=== PATIENT | female | born 1965 | race Caucasian/White ===

== ENCOUNTER → 2024-10-17 | Outpatient (CLI) | payer SELFPAY ==
[2024-10-17 16:43] LABS: Hematocrit 43.5 % (37-47); Hemoglobin 14.2 g/dL (12.0-15.0); Mean Corp Hgb Conc 32.6 g/dL (32-36); Mean Corpuscular Volume 92.4 fL (81-99); Mean Platelet Vol. 9.4 fl (6.2-12.0); Platelet Count 295 K/mm3 (150-450); RBC Distribution Width CV 11.8 % (11.6-14.6); RBC Distribution Width SD 40.0 fl (35.1-43.9); Red Blood Count 4.71 M/mm3 (4.2-5.4); White Blood Count 6.6 K/mm3 (4.4-11.0)
[2024-10-17 19:26] LABS: AST(SGOT) 22 U/L (<=31); Alanine Aminotransfer ALT/SGPT 12 U/L (<=34); Albumin, Serum 4.6 g/dL (3.5-5.0); Alkaline Phosphatase 103 U/L (35-104); Anion Gap 13 (5-15); BUN 13 mg/dL (4-19); BUN/Creat Ratio 15.5 RATIO (10-20); Calcium,Total 9.8 mg/dL (7.6-11.0); Carbon Dioxide 25.8 mmol/L (21.0-32.0); Chloride 104 mmol/L (98-108); Free T3 2.5 pg/mL (2.18-3.98); Globulin 3.3 g/dL (2.2-4.2); Glucose 95 mg/dL (70-99); Potassium 4.2 mmol/L (3.3-5.1)
== END | disposition home or self-care (01) ==
LOC: BIMLAB 16:17
PROVIDERS: PCP Nurse Practitioner Family; Visit Provider Nurse Practitioner Family
DX: E06.3 Autoimmune thyroiditis (principal); R51.9 Headache, unspecified; R10.9 Unspecified abdominal pain; N39.0 Urinary tract infection, site not specified; G89.29 Other chronic pain
CPT/HCPCS: 36415; 80053; 84439; 84443; 84481; 85027

== ENCOUNTER 2024-11-19 07:21 | Day surgery (SDC) | payer SELFPAY ==
[2024-11-19] VITALS (8 sets, daily range): BP systolic 102–133; BP diastolic 52–72; PULSE 55–63; RESP 12–16; TEMP 36.1–36.5; O2SAT 100; BMI 21.7
--- OUTSIDE RECORDS SUMMARY | 2024-11-19 07:25 | XMS RPT_ITS | CCD ---
Author Organization [facility] Care Team Providers Care Sap Bw Developer Name Role Phone Anaya, Son N Unavailable Unavailable Anaya, Son N Unavailable Unavailable Frida GUTIERREZ, Dr. Gonzales Primary Care Provider Dr. Janet Galicia MD Referring Provider Yas Becerril Attending Provider Ungerer BRIDGE INSTRUCTOR-C, Shima Attending Provider Ungerer BRIDGE INSTRUCTOR-C, Shima Primary Care Provider Ungerer BRIDGE INSTRUCTOR-C, Shima Referring Provider Lian GUTIERREZ, Dr. Jacob Madden Attending Provider Ungerer, Shima Primary Care Unavailable Jacob Beal Attending Unavailable Ungerer, Shima Referring Unavailable Ungerer, Shima Primary Care Unavailable Ungerer, Shima Attending Unavailable Ungerer, Shima Primary Care Unavailable Jacob Beal Attending Unavailable Ungerer, Shima Referring Unavailable Janet Galicia Referring Unavailable Janet Galicia Primary Care Unavailable Ungerer, Shima Attending Unavailable Janet Galicia Referring Unavailable Janet Galicia Primary Care Unavailable Yas Becerril Attending Unavail able Medications Current Medications Medication Drug Class(es) Dates Sig (Normalized) Sig (Original) polyethylene glycol 3350 608182 mg / potassium chloride 2970 mg / sodium bicarbonate 6740 mg / sodium chloride 5860 mg / sodium sulfate 09893 mg powder for oral solution (4 sources) Osmotic Laxative Start: 10-23-2024 Peg 3350-Electrolytes (Golytely) 236-22.74-6.74 -5.86 gram recon soln Active 240 mL PO Q10M 4000 0 October 23, 2024 12:00am until fecal effluent is clear Start: 10-23-2024 take 4000 mL by mouth once Peg 3350-Electrolytes 236-22.74-6.74 -5.86 gram recon soln Active 4000 mL PO ONCE 4000 0 October 23, 2024 12:00am until fecal effluent is clear; do not exceed a total volume of 4000 mL Problems Active Problems Problem Classification Problem Date Documented Da te Episodic/Chronic Abdominal pain (20 sources) Pain in pelvis; Translations: [Abdominal discomfort] Onset: 10-23-2024 Episodic Genitourinary symptoms and ill-defined conditions (1 source) Dysuria; Translations: [Dysuria] Onset: 10-14-2024 Episodic Headache; including migraine (6 sources) Chronic headache disorder; Translations: [Chronic headache disorder] 10-17-2024 Episodic Headache; including migraine (1 source) Headache; including migraine; Translations: [Headache, unspecified] Onset: 10-17-2024 Other ear and sense organ disorders (4 sources) Hearing disorder; Translations: [Unspecified hearing loss, unspecified ear] 10-17-2024 Chronic Other gastrointestinal disorders (4 sources) Abdominal bloating; Translations: [Abdominal distension (gaseous)] 10-23-2024 Episodic Other gastrointestinal disorders (4 sources) Constipation; Translations: [Constipation, unspecified] 10-23-2024 Episodic Other gastrointestinal disorders (1 source) Abdominal distension (gaseous); Translations: [Abdominal distension (gaseous)] Onset: 10-23-2024 Episodic Other gastrointestinal disorders (1 source) Constipation, unspecified; Translations: [Constipation, unspecified] Onset: 10-23-2024 Episodic Other nervous system disorders (1 source) Other chronic pain; Translations: [Other chronic pain] Onset: 10-17-2024 Chronic Other screening for suspected conditions (not mental disorders or infectious disease) (7 sources) Patient encounter status; Translations: [Encounter for screening for malignant neoplasm of colon] Onset: 10-23-2024 10-17-2024 Episodic Thyroid disorders (7 sources) Alejandra thyroiditis; Translations: [Autoimmune thyroiditis] Onset: 11-06-2024 10-17-2024 Chronic Thyroid disorders (8 sources) Disorder of thyroid gland; Translations: [Disorder of thyroid, unspecified] Onset: 10-17-2024 10-14-2024 Episodic Unclassified (1 source) Unknown / UNK(Unknown) Onset: 01-18-2017 Unclassified (4 sources) R10.2 - Pelvic and perineal pain,R10.9 - Unspecified abdominal pain Unclassified (2 sources) Encounter for screening for malignant neoplasm of colon Unclassified (2 sources) R10.9 - Unspecified abdominal pain,Z12.11 - Encounter for screening for malignant neoplasm of colon Urinary tract infections (7 sources) Recurrent urinary tract infection; Translations: [Urinary tract infection, site not specified] Onset: 10-17-2024 10-17-2024 Episodic Past or Other Problems Problem Classification Problem Date Documented Da te Episodic/Chronic Unclassified (1 source) BREAST SCREENING,Z00.00 Onset: 01-18-2017 Results Test Name Value Interpretation Reference Range Facility Surgery Visit Reporton 10-23 Surgery Visit Report [facility] [address] [place] [address] OFFICE VISIT Date of Service: 10/23/24 MR#: [id number] Acct: [id number] Name: ISMAEL GARRETT Monica Rep #: [id number] : 1965 Provider: Dr. Jacob colon MD Age/Sex: 59/F Location: [facility] Status: Signed Intake Vital Signs 10/17/24 15:26 10/23/24 08:48 Height 5 ft 5 in 5 ft 5 in Weight: 137 lb 135 lb BMI 22.8 22.4 BP 124/68 H 135/79 H Blood Pressure Location Lt brachial Rt brachial Position Sitting Sitting Respiration 18 18 Pulse 64 Pulse Source Monitor Temp 98.2 F Temp Source Temporal Pulse Oximetry (%) 96 Oxygen Delivery Method room air Intake Visit Reasons: SELF PAY- colonoscopy- abd pain Chief Complaint: RLQ abd pain, bloating, constipation Winding Inspector Required: No Is patient in pain?: Yes (RLQ abd) Allergies No Known Allergies Allergy (Verified 10/23/24 08:50) Medications ???Medication ???Instructions ???Recorded ???Confirmed ???Type NK 10/14/24 10/23/24 History Have you fallen in the past year?: No PFSH Medical History (Updated 10/23/24 @ 08:48 by Chapis Reyes) Constipation Bloating Abdominal pain Stenosis of ureter Stomach ulcer Abdominal migraine Surgical History (Updated 10/23/24 @ 08:48 by Chapis Reyes) H/O hand surgery Family History Father Myocardial infarction, Onset Age: 50 Suicide CVA (cerebral vascular accident), Onset Age: 50 Sister Suicide Sister Schizophrenia Manic depressive disorder Son Thyroid disorder Mother Thyroid disorder Graves disease Social History (Updated 10/23/24 @ 08:48 by Chapis Reyes) adopted: No current occupational status: employed current occupational exposures/hazards: No Smoking Status: Former smoker alcohol intake: former substance use type: marijuana what type of physical activity do you participate in: walking frequency: daily duration: 45-60 minutes/day seatbelt use: always do you feel safe at home: Yes HPI HPI HPI: The patient is a 59-year-old female who is being seen today for issues of chronic constipation as well as right lower quadrant pain. She states that this has been an ongoing problem for her off and on for several decades however in the last few years this has become much more symptomatic and problematic. She describes pain off and on in the right lower quadrant. She describes bloating. She states that she typically has a bowel movement once every 1 to 2 weeks. When asked about what she does to stimulate bowel movements, sounds as though she drinks more fluids and tries to eat a more high-fiber diet with more fruits and vegetables etc. she has not had a colonoscopy. As far as family history, her mother has history of polyps and diverticulitis. No family history for Crohn's disease, ulcerative colitis or colon cancers. She does not notice any regular blood in her stools but does state that several years ago she had a couple episodes of painless blood per rectum. She also describes somewhat of a burning sensation throughout her lower abdomen when the stools are passing. She presents today for evaluation and to discuss possible colonoscopy ROS General General: Yes weight change and fatigue; No appetite, colon cancer, breast cancer or weakness HEENT HEENT: No difficulty swallowing, eye injury, eye surgery, swollen glands or hoarseness Endo Endocrine: Yes thyroid disease; No diabetes mellitus, thyroid cancer, Hair loss, heat intolerance or cold intolerance Skin Skin: No rash or changing moles Breast Breast: No left breast lump, right breast lump, nipple discharge, breast pain, abnormal mammogram, abnormal US or breast enlargement Musc Musculoskeletal: Yes back problems; No arthritis, rheumatoid arthritis, gout or joint pain Cardio Cardiovascular: No murmur, pacemaker, heart disease, atrial fibrillation, high blood pressure, heart attack, heart stent, palpitations, shortness of breath with exertion or chest pain Psych Psychiatric: Yes depression; No anxiety or hearing voices Resp Respiratory: No shortness of breath, No sleep apnea, No cough, No COPD, No asthma, No emphysema and No wheezing Gastro Gastrointestinal: Yes abdominal pain, Yes nausea or vomiting, Yes diarrhea, Yes constipation, No blood in stool, No acid reflux, No hemorrhoids, No ulcers, No gallbladder problem and No black,tarry stools Jason Hematologic: No blood thinners, No blood disorders, No bleeding, No anemia and No blood clots Neuro Neurologic: No system reviewed and no additional complaints, except as documented, No as per HPI, No abnormal gait, No abnormal hearing, No abnormal movements, No abnormal speech, No behavioral changes, No burning sensations, No confusion, No convu (more content not included)... Normal [facility] Anion gap in Serum or Plasma Ordered By: Shima King on 10-17-2024 Anion gap [Moles/Vol] 13 mmol/L - [facility] BUN/creatinine ratioOrdered By: Shima King on 10-17-2024 Urea nitrogen/Creatinine [Mass ratio] 15.5 mg/mg 01-27 [facility] Bilirubin, totalOrdered By: Shima King on 10-17-2024 Bilirubin [Mass/Vol] 0.28 mg/dL 0.00-1.30 [facility] CBC-Complete Blood Cnt No Di ffon 10-17-2024 Erythrocyte distribution width (RBC) [Ratio] 11.8 % Normal 11.6-14.6 [facility] Comment on above: Performed By: #### L 501.9598, L506.0400, L100.0500, L500.4050, L501.65767 #### [facility] [place], [address] Hematocrit (Bld) [Volume fraction] 43.5 % Normal 37-47 [facility] Comment on above: Performed By: #### L 501.9520, L506.0400, L100.0500, L500.4050, L501.28920 #### [facility] [address] [place], [address] Hemoglobin (Bld) [Mass/Vol] 14.2 g/dL Normal 12.0-15.0 [facility] Comment on above: Performed By: #### L 501.9520, L506.0400, L100.0500, L500.4050, L501.32992 #### [facility] [address] [place], [address] MCH (RBC) [Entitic mass] 30.1 pg Normal 27.0-32.0 [facility] Comment on above: Performed By: #### L 501.9520, L506.0400, L100.0500, L500.4050, L501.60476 #### [facility] [address] [place], [address] MCHC (RBC) [Mass/Vol] 32.6 g/dL Normal 32-36 [facility] Comment on above: Performed By: #### L 501.9520, L506.0400, L100.0500, L500.4050, L501.25648 #### [facility] [address] [place], [address] MCV (RBC) [Entitic vol] 92.4 fL Normal 81-99 [facility] Comment on above: Performed By: #### L 501.9520, L506.0400, L100.0500, L500.4050, L501.39804 #### [facility] [address] [place], [address] Platelet mean volume (Bld) [Entitic vol] 9.4 fL Normal 6.2-12.0 [facility] Comment on above: Performed By: #### L 501.9520, L506.0400, L100.0500, L500.4050, L501.32709 #### [facility] [address] [place], [address] Platelets (Bld) [#/Vol] 295 10*3/uL Normal 150-450 [facility] Comment on above: Performed By: #### L 501.9520, L506.0400, L100.0500, L500.4050, L501.97839 #### [facility] [address] [place], [address] RBC (Bld) [#/Vol] 4.71 10*6/uL Normal 4.2-5.4 [facility] Comment on above: Performed By: #### L 501.9520, L506.0400, L100.0500, L500.4050, L501.72913 #### [facility] [address] [place], [address] RDW SD 40.0 fl Normal 35.1-43.9 [facility] Comment on above: Performed By: #### L 501.9520, L506.0400, L100.0500, L500.4050, L501.38707 #### [facility] [address] [place], [address] WBC (Bld) [#/Vol] 6.6 10*3/uL Normal 4.4-11.0 [facility] Comment on above: Performed By: #### L 501.9520, L506.0400, L100.0500, L500.4050, L501.03679 #### [facility] [address] [place], [address] Carbon dioxide, total [Moles /volume] in Central venous bloodOrdered By: Shima King on 10-17-2024 CO2 [Moles/Vol] 25.8 mmol/L 21.0-32.0 [facility] Chloride assayOrdered By: Corby King on 10-17-2024 Chloride [Moles/Vol] 104 mmol/L 98-108 [facility] Comprehensive Metabolic Prof ilon 10-17-2024 Albumin [Mass/Vol] 4.6 g/dL Normal 3.5-5.0 [facility] Comment on above: Performed By: #### L 501.9520, L506.0400, L100.0500, L500.4050, L501.54962 #### [facility] [address] [place], [address] Albumin/Globulin [Mass ratio] 1.4 {ratio} Normal 0.9-2.4 [facility] Comment on above: Performed By: #### L 501.9520, L506.0400, L100.0500, L500.4050, L501.12198 #### [facility] [address] [place], [address] ALK PHOS 103 U/L Normal 35-104 [facility] Comment on above: Performed By: #### L 501.9520, L506.0400, L100.0500, L500.4050, L501.75191 #### [facility] [address] [place], [address] ALT [Catalytic activity/Vol] 12 U/L Normal <=34 [facility] Comment on above: Performed By: #### L 501.9520, L506.0400, L100.0500, L500.4050, L501.77129 #### [facility] [address] [place], [address] AST [Catalytic activity/Vol] 22 U/L Normal <=31 [facility] Comment on above: Performed By: #### L 501.9520, L506.0400, L100.0500, L500.4050, L501.75510 #### [facility] [address] [place], [address] Bilirubin [Mass/Vol] 0.28 mg/dL Normal 0.00-1.30 [facility] Comment on above: Performed By: #### L 501.9520, L506.0400, L100.0500, L500.4050, L501.43166 #### [facility] [address] [place], [address] BUN/CRE 15.5 RATIO Normal 10-20 [facility] Comment on above: Performed By: #### L 501.9520, L506.0400, L100.0500, L500.4050, L501.21618 #### [facility] [address] [place], [address] Calcium [Mass/Vol] 9.8 mg/dL Normal 7.6-11.0 [facility] Comment on above: Performed By: #### L 501.9520, L506.0400, L100.0500, L500.4050, L501.48474 #### [facility] [address] [place], [address] Chloride [Moles/Vol] 104 mmol/L Normal 98-108 [facility] Comment on above: Performed By: #### L 501.9520, L506.0400, L100.0500, L500.4050, L501.10974 #### [facility] [address] [place], [address] CO2 [Moles/Vol] 25.8 mmol/L Normal 21.0-32.0 [facility] Comment on above: Performed By: #### L 501.9520, L506.0400, L100.0500, L500.4050, L501.01386 #### [facility] [address] [place], [address] Creatinine [Mass/Vol] 0.87 mg/dL Normal 0.70-1.20 [facility] Comment on above: Performed By: #### L 501.9520, L506.0400, L100.0500, L500.4050, L501.87466 #### [facility] [address] [place], [address] GAP 13 Normal 5-15 [facility] Comment on above: Performed By: #### L 501.9520, L506.0400, L100.0500, L500.4050, L501.20463 #### [facility] [address] [place], [address] GFR/1.73 sq M.predicted among non-blacks MDRD (S/P/Bld) [Vol rate/Area] 77 mL/min/{1.73_m2} Normal >60 [facility] Comment on above: Result Comment: mL/m in/1.73m2 CKD-EPI Creatinine Equation (2020) Performed By: #### L 501.9520, L506.0400, L100.0500, L500.4050, L501.23544 #### [facility] [address] [place], [address] Globulin (S) [Mass/Vol] 3.3 g/dL Normal 2.2-4.2 [facility] Comment on above: Performed By: #### L 501.9520, L506.0400, L100.0500, L500.4050, L501.39579 #### [facility] [address] [place], [address] Glucose [Mass/Vol] 95 mg/dL Normal 70-99 [facility] Comment on above: Performed By: #### L 501.9520, L506.0400, L100.0500, L500.4050, L501.91861 #### [facility] [address] [place], [address] Potassium [Moles/Vol] 4.2 mmol/L Normal 3.3-5.1 [facility] Comment on above: Performed By: #### L 501.9520, L506.0400, L100.0500, L500.4050, L501.50828 #### [facility] [address] [place], [address] Sodium [Moles/Vol] 143 mmol/L Normal 133-145 [facility] Comment on above: Performed By: #### L 501.9520, L506.0400, L100.0500, L500.4050, L501.63297 #### [facility] [address] [place], [address] T PROT 7.9 g/dL Normal 5.9-8.4 [facility] Comment on above: Performed By: #### L 501.9520, L506.0400, L100.0500, L500.4050, L501.79718 #### [facility] [address] [place], [address] Urea nitrogen [Mass/Vol] 13 mg/dL Normal 4-19 [facility] Comment on above: Performed By: #### L 501.9520, L506.0400, L100.0500, L500.4050, L501.81096 #### [facility] [address] [place], [address] Erythrocyte distribution wid th ratioOrdered By: Shima King on 10-17-2024 Erythrocyte distribution width (RBC) [Ratio] 11.8 % 11.6-14.6 [facility] Erythrocyte distribution wid th standard deviationOrdered By: Shima King on 10-17-2024 Erythrocyte distribution width (RBC) [Ratio] 40.0 fl 35.1-43.9 [facility] Free T3on 10-17-2024 Free T3 [Mass/Vol] 2.5 pg/mL Normal 2.18-3.98 [facility] Comment on above: Performed By: #### L 501.9520, L506.0400, L100.0500, L500.4050, L501.32959 #### [facility] [address] [place], [address] Free Q0Cidnojq By: Shima james on 10-17-2024 Free T3 [Mass/Vol] 2.5 pg/mL 2.18-3.98 [facility] Glomerular filtration rate ( GFR) estimation/1.73 sq m using serum, plasma, or whole bOrdered By: Shima King on 10-17-2024 GFR/1.73 sq M.predicted among non-blacks MDRD (S/P/Bld) [Vol rate/Area] 77 mL/min/{1.73_m2} >60 [facility] Comment on above: mL/min/1.73m2 CKD-EP I Creatinine Equation (2020) Hematocrit Auto (Bld) [Volum e fraction]Ordered By: Shima King on 10-17-2024 Hematocrit (Bld) [Volume fraction] 43.5 % 37-47 [facility] Hemoglobin measurementOrdere d By: Shima King on 10-17-2024 Hemoglobin (Bld) [Mass/Vol] 14.2 g/dL 12.0-15.0 [facility] Internal Medicine Office Vis iton 10-17-2024 Internal Medicine Office Visit [facility] [address] [place] [address] [place] [address] OFFICE VISIT Date of Service: 10/17/24 MR#: [id number] Acct: [id number] Name: ISMAEL GARRETT Monica Rep #: [id number] : 1965 Provider: CARMEN maki Age/Sex: 59/F [place] [facility] Status: Signed Intake Vital Signs 10/14/24 17:23 10/17/24 15:26 Height 5 ft 5 in 5 ft 5 in Weight: 138 lb 8 oz 137 lb BMI 23.0 22.8 BP 102/60 124/68 H Blood Pressure Location Lt brachial Position Sitting Sitting Respiration 16 18 Pulse 50 L 64 Pulse Source Monitor Temp 97.7 F L 98.2 F Temp Source Oral Temporal Pulse Oximetry (%) 98 96 Oxygen Delivery Method room air room air Intake Visit Reasons: ACUTE LOWER ABD PAIN-EST IN JAN Chief Complaint: ACUTE LOWER ABD PAIN- EST IN OCT Is patient in pain?: Yes (4 lower ABD) Allergies No Known Allergies Allergy (Verified 10/17/24 15:19) Medications ???Medication ???Instructions ???Recorded ???Confirmed ???Type NK 10/14/24 10/17/24 History Nurse's Note: pt reports that she has had stomach issues for years but in the past month she has noticed severe bloating and ABD discomfort especially when bowels are moving [facility] Medical History (Updated 10/17/24 @ 16:45 by CARMEN Guzman) Stomach ulcer Abdominal migraine Family History (Updated 10/17/24 @ 15:25 by Glenda Cherry LPN) Father Myocardial infarction, Onset Age: 50 Suicide CVA (cerebral vascular accident), Onset Age: 50 Sister Suicide Sister Schizophrenia Manic depressive disorder Son Thyroid disorder Mother Thyroid disorder Graves disease Social History (Updated 10/17/24 @ 15:19 by Glenda Cherry LPN) adopted: No current occupational status: employed current occupational exposures/hazards: No Smoking Status: Former smoker alcohol intake: former substance use type: former substance user and marijuana what type of physical activity do you participate in: walking frequency: daily duration: 45-60 minutes/day seatbelt use: always do you feel safe at home: Yes HPI HPI Chief Complaint: ACUTE LOWER ABD PAIN- EST IN JAN Details: ISMAEL GARRETT, is a 59 F who presents to the office today for evaluation of recurrent abdominal pain and bloating. Patient is a new patient today seen for acute visit well-established with Dr. Maldonado in January. Today patient complains of lower abdominal pain and constipation. States pain has been present throughout her life however it seems to have been getting worse over the last month. She states she has no blood in her stool but has had mucus. States it has been normal for her to have mucus in her stool. States frequency of bowel movements to every 1 or 2 weeks. She states this has been usual for her. She states 1 time roughly 18 years ago she did have some nonpainful rectal bleeding. None since was not evaluated. Has not had a colonoscopy she does have a history of thyroid disease unsure of history regarding this. States her mom does have Graves' disease. ROS Const Constitutional: No body ache, chills, excessive sweating, fatigue, fever(s), frequent falls, headache(s), snoring, weight change, sleep problems, abnormal sleep pattern or change in appetite Eyes Eyes: No blurry vision, change in vision, eye pain or Light sensitivity ENT ENT: No abnormal hearing, ear or mastoid pain, tinnitus, nasal congestion, headache(s), neck pain or sore throat Resp Respiratory: No cough, shortness of breath, snoring or wheezing Cardio Cardiology: No chest pain at rest, chest pain with exertion, excessive sweating, shortness of breath, dyspnea on exertion, lightheadedness, orthopnea or palpitations Gastro GI: No abdominal pain, change in bowel habits, constipation, cramping, diarrhea, nausea/dyspepsia or vomiting Genitourinary-Female: No burning urination, painful urination, urinary incontinence, urinary frequency, abnormal vaginal bleeding or pelvic pain Musc Musculoskeletal: No abnormal gait, joint pain, back pain, limited range of motion, neck pain, numbness or tingling Skin Skin: No dry skin, redness, lesions, itchy eyes, rash or wounds Neuro Neurology: No abnormal gait, abnormal hearing, frequent falls, headache(s), memory loss, numbness or tingling Psych Psychiatric: No abnormal sleep pattern, No anxiety, No change in appetite, No irritability, No memory loss and No Thoughts of harming yourself/Others Endo Endocrine: No cold intolerance, excessive sweating, fatigue, flushing, heat intolerance, increased thirst/drinking, increased hunger or weight change Aller/Imm Allergy/Immunologic: No itchy eyes, seasonal allergy symptoms, hives or wheezing Jasno/Lymp Hematologic/Lymphatic: No easy bleeding, easy bruising, enlarged lymph nodes or other Exam Const General: cooperative, no acute distress, well (more content not included)... Normal [facility] - Chemistry and C hemistry - challengeOrdered By: Shima King on 10-17-2024 AST [Catalytic activity/Vol] 22 U/L <32 [facility] MCV (mean corpuscular volume ) determinationOrdered By: Shima King on 10-17-2024 MCV (RBC) [Entitic vol] 92.4 fL 81-99 [facility] Mean corpuscular hemoglobin (MCH) determinationOrdered By: Shima King on 10-17-2024 MCH (RBC) [Entitic mass] 30.1 pg 27.0-32.0 [facility] Mean corpuscular hemoglobin concentration (MCHC) determinationOrdered By: Shima King on 10-17-2024 MCHC (RBC) [Mass/Vol] 32.6 g/dL 32-36 [facility] Mean platelet volume determi nationOrdered By: Shima King on 10-17-2024 Platelet mean volume (Bld) [Entitic vol] 9.4 fL 6.2-12.0 [facility] Platelet countOrdered By: Corby King on 10-17-2024 Platelets (Bld) [#/Vol] 295 10*3/uL 150-450 [facility] Potassium measurement (mass/ volume)Ordered By: Shima King on 10-17-2024 Potassium (Unsp spec) [Mass/Vol] 4.2 mmol/L 3.3-5.1 [facility] RBC Auto (Bld) [#/Vol]Ordere d By: Shima King on 10-17-2024 RBC (Bld) [#/Vol] 4.71 10*6/uL 4.2-5.4 [facility] Serum creatinine measurement (mass/volume)Ordered By: Shima King on 10-17-2024 Creatinine [Mass/Vol] 0.87 mg/dL 0.70-1.20 [facility] Serum globulin measurementOr dered By: Shima King on 10-17-2024 Globulin (S) [Mass/Vol] 3.3 g/dL 2.2-4.2 [facility] Serum glucose measurement (m ass/volume)Ordered By: Shima King on 10-17-2024 Glucose [Mass/Vol] 95 mg/dL 70-99 [facility] Serum or plasma alanine mcdowell otransferase (ALT) measurementOrdered By: Shima King on 10-17-2024 ALT [Catalytic activity/Vol] 12 U/L <35 [facility] Serum or plasma albumin leonor urement (mass/volume)Ordered By: Shima King on 10-17-2024 Albumin [Mass/Vol] 4.6 g/dL 3.5-5.0 [facility] Serum or plasma albumin/glob ulin mass ratioOrdered By: Shima King on 10-17-2024 Albumin/Globulin [Mass ratio] 1.4 {ratio} 0.9-2.4 [facility] Serum or plasma alkaline leandro sphatase measurementOrdered By: Shima King on 10-17-2024 ALP [Catalytic activity/Vol] 103 U/L 35-104 [facility] Serum or plasma calcium leonor urement (mass/volume)Ordered By: Shima King on 10-17-2024 Calcium [Mass/Vol] 9.8 mg/dL 7.6-11.0 [facility] Serum or plasma urea nitroge n measurement (mass/volume)Ordered By: Shima King on 10-17-2024 Urea nitrogen [Mass/Vol] 13 mg/dL 4-19 [facility] Sodium levelOrdered By: Zoya King on 10-17-2024 Sodium [Moles/Vol] 143 mmol/L 133-145 [facility] T4 Free Directon 10-17-2024 T4 FREE DIRECT 0.90 ng/dL Normal 0.76-1.46 [facility] Comment on above: Performed By: #### L 501.9520, L506.0400, L100.0500, L500.4050, L501.78274 #### [facility] [address] [place], [place], [id number] T4 freeOrdered By: Shima james on 10-17-2024 Free T4 [Mass/Vol] 0.90 ng/dL 0.76-1.46 [facility] TSH DL <= 0.005 mIU/L QnOrde red By: Shima King on 10-17-2024 TSH Qn 4.120 uIU/mL 0.300-4.200 [facility] Thyroid Stim Hormone (TSH)on 10-17-2024 TSH 4.120 uIU/mL Normal 0.300-4.200 [facility] Comment on above: Performed By: #### L 501.9520, L506.0400, L100.0500, L500.4050, L501.98511 #### [facility] [address] [place], [place], [id number] Total proteinOrdered By: Pia King on 10-17-2024 Protein [Mass/Vol] 7.9 g/dL 5.9-8.4 [facility] White blood cell (WBC) count Ordered By: Shima King on 10-17-2024 WBC (Bld) [#/Vol] 6.6 10*3/uL 4.4-11.0 [facility] - Chemistry and C hemistry - challengeOrdered By: Yas Garcia on 10-14-2024 Bilirubin Ql (U) Negative [facility] Glucose Ql (U) Negative [facility] Ketones Ql (U) Trace (5) [facility] pH (U) 5.0 [pH] [facility] Specific gravity (U) [Rel density] 1.025 [facility] Urobilinogen (U) [Mass/Vol] 0.4652221 mg/dL [facility] - Hematology and Cell countsOrdered By: Yas Garcia on 10-14-2024 Hemoglobin Ql (U) Negative [facility] - Specimen inform ationOrdered By: Yas Garcia on 10-14-2024 Clarity (U) Clear [facility] Color (U) YELLOW [facility] - UrinalysisOrder ed By: Yas Garcia on 10-14-2024 Nitrite Ql (U) Negative [facility] Protein Ql (U) Negative [facility] No Panel InformationOrdered By: Yas Garcia on 10-14-2024 Urine Leukocytes Negatve [facility] Urine Non-Hemolyzed Blood Negative [facility] Office Visit Reporton 2024 Office Visit Report [facility] [address] [place] [address] OFFICE VISIT Date of Service: 10/14/24 MR#: [id number] Acct: [id number] Patient: ISMAEL GARRETT Rep #: [id number] : 1965 Provider: CARIN Prather Age/Sex: 59/F Location[place] [facility] Status: Signed Intake Vital Signs 10/14/24 17:23 Height 5 ft 5 in Weight: 138 lb 8 oz BMI 23.0 BP 102/60 Position Sitting Respiration 16 Pulse 50 L Temp 97.7 F L Temp Source Oral Pulse Oximetry (%) 98 Oxygen Delivery Method room air Intake Visit Reasons: CONCERN FOR UTI Chief Complaint: UTI Accompanied by: Self Allergies No Known Allergies Allergy (Verified 10/14/24 17:23) Medications ???Medication ???Instructions ???Recorded ???Confirmed ???Type NK 10/14/24 10/14/24 History Nurse's Note: Patient has UTI symptoms. Patient has burning and lower abdominal pain that has been going on a month. Patient has taken Azo and that has helped the burning. Patient has been drinking lots of water. [facility] Social History (Updated 10/14/24 @ 17:23 by Tierney Moran MA) Smoking Status: Never smoker alcohol intake: never HPI HPI Chief Complaint: UTI Details: ISMAEL GARRETT, is a 59 F who presents to the office today for concerns over UTI. Patient states that for the last month she has had pelvic and abdominal discomfort. She does feel bloated. She does not have any burning when she urinates or increased frequency. She does keep her self hydrated. She does try to take Azo. She states that on and off for her history she does have abdominal discomfort and can seem to get rid of it just with using increase water and Azo. She does not have routine bowel movements. She does get constipated easily. She finds it when she is constipated she does have worsening symptoms in her pelvic area. She has not been to the doctor in 18 years. She does not have insurance. ROS Const Constitutional: Positive for other (ROS negative x 6 except what is described above) Exam Const General: cooperative, healthy appearing and no acute distress Nutritional Appearance: average body habitus Orientation: alert, awake and oriented x3 HENMT Head: normal to inspection and atraumatic Ears: hearing grossly normal bilaterally Nose: external nose normal Face and sinus: normal facial exam Mouth: oral mucosae normal Eyes General: appearance normal, both eyes and all related structures Resp Effort Inspection: normal respiratory effort Auscultation: Bilateral: Clear to Auscultation Cardio Palpation: normal PMI Rate: regular rate Rhythm: regular rhythm Heart Sounds: S1 normal, S2 normal, no gallops, no murmurs and no rubs GI Inspection: normal to inspection Auscultation: normal bowel sounds Palpation: soft, no hepatosplenomegaly and tender in the LLQ and in the RLQ Neuro General: patient alert, patient awake, patient oriented x3 and CN's II-XI intact bilaterally Results POC Urinalysis Dip (Clinic) Office Urine Color YELLOW Last Edit by Tierney Moran MA on 10/14/24 17:34 Office Urine Clarity Clear Last Edit by Tierney Moran MA on 10/14/24 17:34 Office Urine Glucose Negative Last Edit by Tierney Moran MA on 10/14/24 17:34 Office Urine Ketones Trace (5) Last Edit by Tierney Moran MA on 10/14/24 17:34 Off Ur Spec Leon 1.025 Last Edit by Tierney Moran MA on 10/14/24 17:34 Office Urine pH 5.0 Last Edit by Tierney Moran MA on 10/14/24 17:34 Office Urine Bilirubin Negative Last Edit by Tierney Moran MA on 10/14/24 17:34 Office Urine Urobilinogen 0.2 mg/dL Last Edit by Tierney Moran MA on 10/14/24 17:34 Office Urine Blood Negative Last Edit by Tierney Moran MA on 10/14/24 17:34 Office Urine Blood Hemolyzed Negative Last Edit by Tierney Moran MA on 10/14/24 17:34 Office Urine Protein Negative Last Edit by Tierney Moran MA on 10/14/24 17:34 Office Urine Nitrate Negative Last Edit by Tierney Moran MA on 10/14/24 17:34 Off Ur Leukocytes Negatve Last Edit by Tierney Moran MA on 10/14/24 17:34 Coding Level of Care Code Off vis,new,level 3 Diagnoses Abdominal discomfort R10.9 Pelvic pain R10.2 Assessment and Plan Assessment and Plan (1) Abdominal discomfort: Status: Acute (2) Pelvic pain: Status: Acute Orders: Orders POC Urinalysis Dip (Clinic) Today R30.0 - Dysuria Referrals Internal Medicine R10.2 - Pelvic and perineal pain, R10.9 - Unspecified abdominal pain Plan Urine dip is negative. Had a long discussion with patient about the fact that she needs to establish with a primary care doctor because she does need additional testing to find out what is going on. It could either be GI or [employer]PERVIS[employer] related. Will refer her to [facility]. Patient is agreeable with this. 10/14/24 1750 A> Date M (more content not included)... Normal [facility] CMPon 01-19-2017 Alanine aminotransferase (ALT) 30 U/L Normal 13-61 [facility] Comment on above: Performed By: #### L 500.42758, L500.23250, L500.60414, L550.97830 ####[facility] TZOLNTKHRB2744 [place], [place] [address]Tu# [phone] Albumin 4.3 g/dL Normal 3.2-5.0 [facility] Comment on above: Performed By: #### L 500.78554, L500.96091, L500.53305, L550.70331 ####[facility] LZADSEHOMJ9082 [place], [place] [address]En# [phone] Albumin/Globulin Ratio 1.2 {ratio} Normal 0.8-2.0 [facility] Comment on above: Performed By: #### L 500.16325, L500.54422, L500.76274, L550.61044 ####[facility] QNHQOWIFES1447 [place], [place] [address]Ly# [phone] ALK PHOS 102 U/L Normal 45-117 [facility] Comment on above: Performed By: #### L 500.28085, L500.78181, L500.48562, L550.33173 ####[facility] XTSBEPOLGN3989 [place], [place] [address]Ep# [phone] Anion gap 7 mmol/L Normal 5-16 [facility] Comment on above: Performed By: #### L 500.16306, L500.25598, L500.48591, L550.82780 ####[facility] PNPVBVAIQX1032 [place], [place] [address]Ym# [phone] BILI TOTAL 0.5 MG/DL Normal 0.2-1.0 [facility] Comment on above: Performed By: #### L 500.91980, L500.73148, L500.67321, L550.48648 ####[facility] QSNTYHVGHB7045 [place], [place] [address]Sd# [phone] BUN/Creatinine Ratio 21 mg/mg Normal 15-24 [facility] Comment on above: Performed By: #### L 500.21522, L500.20433, L500.66162, L550.58174 ####[facility] YEQWDERUZG0916 [place], [place] [address]Sw# [phone] Calcium 9.3 mg/dL Normal 8.5-10.1 [facility] Comment on above: Performed By: #### L 500.21407, L500.43959, L500.13559, L550.22675 ####[facility] SFZULGRPZC7806 [place], [place] [address]Zv# [phone] Chloride 104 mmol/L Normal 98-107 [facility] Comment on above: Performed By: #### L 500.85003, L500.41122, L500.02926, L550.69804 ####[facility] BHVFJGCBDI8422 [place], [place] [address]Fa# [phone] CO2 29 mmol/L Normal 21-32 [facility] Comment on above: Performed By: #### L 500.47675, L500.76848, L500.13165, L550.34977 ####[facility] FWKUASTJJZ4027 [place], [place] [address]Wa# [phone] Creatinine 0.901 mg/dL Normal 0.510-0.950 [facility] Comment on above: Result Comment: Libra ents receiving either N-Acetylcysteine (NAC) orMetamizole prior to venipuncture, may have falsely depressedresults. Performed By: #### L 500.39074, L500.64411, L500.59176, L550.36093 ####[facility] DJNGYOPUQH3055 [place] [id number]# [phone] Globulin 3.5 g/dL Normal 2.2-4.2 [facility] Comment on above: Performed By: #### L 500.85562, L500.56711, L500.08690, L550.28011 ####[facility] [address] [place] [address]Hh# [phone] Glucose mass conc 87 mg/dL Normal 70-100 [facility] Comment on above: Result Comment: 70-1 00-Normal Fasting; 498-000-Kbniebmh Fasting; greaterthan 126 on more than one result-Diabetes. ADA guidelines Performed By: #### L 500.60925, L500.04259, L500.59644, L550.55160 ####[facility] VGWJCHDUEY7300 [place], [place] [address]Bf# [phone] Potassium molar conc 4.6 mmol/L Normal 3.5-5.1 [facility] Comment on above: Performed By: #### L 500.28550, L500.39938, L500.74665, L550.95873 ####[facility] VJZNBICPTD6480 [place], [place] [address]Az# [phone] Protein 7.8 g/dL Normal 6.0-8.5 [facility] Comment on above: Performed By: #### L 500.56164, L500.74183, L500.31076, L550.93217 ####[facility] TYEMNTBXDG8248 [place], [place] [address]Zw# [phone] SGOT (AST) 28 U/L Normal 8-34 [facility] Comment on above: Performed By: #### L 500.82031, L500.54418, L500.07359, L550.07289 ####[facility] WHDSVVGJCU9159 [place], [place] [address]Kj# [phone] Sodium 140 mmol/L Normal 136-145 [facility] Comment on above: Performed By: #### L 500.64692, L500.89107, L500.72924, L550.99165 ####[facility] RBKDVLESEQ9456 [place], [place] [address]Zh# [phone] Urea nitrogen 19 mg/dL Normal 7- [facility] Comment on above: Performed By: #### L 500.03189, L500.31183, L500.12559, L550.62575 ####[facility] NMWWWTYHYJ8113 [place], [place] [address]Xd# [phone] GFR ESTon 01-19-2017 IF AMER Greater than 60 Normal [facility] Comment on above: Performed By: #### L 500.72541, L500.05535, L500.49949, L550.12370 ####[facility] AHRLGIUTLH2582 [place], [place] [address]Ut# [phone] IF non-AFR AMER Greater than 60 Normal [facility] Comment on above: Performed By: #### L 500.83262, L500.91548, L500.64755, L550.24820 ####[facility] YBMVYFZAQU5329 [place], [place] [address]Px# [phone] LIPIDon 01-19-2017 Cholesterol 267 mg/dL High 0-199 [facility] Comment on above: Performed By: #### L 500.04728, L500.76774, L500.06917, L550.79744 ####[facility] IQPRBEROBV8837 [place], [place] [address]El# [phone] HDL Cholesterol 79 mg/dL Normal [place] 40 [facility] Comment on above: Result Comment: Libra ents receiving Metamizole prior to venipuncture, mayhave falsely depressed results. Performed By: #### L 500.08280, L500.29971, L500.66826, L550.54544 ####[facility] HFONEVJQTR4477 [place], [place] [address]Is# [phone] LDL Cholesterol 172 MG/DL High 0-129 [facility] Comment on above: Result Comment: ___C HOLESTEROL/HDL RATIO RISK___ CHD RISK = Total CHOL LDL HDL (CHOL/HDL) ---------Recommended <200 <130 >35 <3.4 ---Borderline 200-239 130-159 3.4-4.99 -------High >240 >160 >5.0 --- Performed By: #### L 500.09987, L500.02559, L500.71143, L550.80644 ####[facility] DUZOFPCSHQ5556 [place], [place] [address]Zm# [phone] Triglyceride 83 mg/dL Normal 30-149 [facility] Comment on above: Result Comment: Libra ents receiving either N-Acetylcysteine (NAC) orMetamizole prior to venipuncture, may have falsely depressedresults. Performed By: #### L 500.24407, L500.96169, L500.49775, L550.30976 ####[facility] EYNZNPNHCF3967 [place], [place] [address]Am# [phone] [id number] 01-19-2017 [id number] 16.2 NG/ML Low 30.0-100.0 [facility] Comment on above: Result Comment: Defi ciency Less than 20 ng/mLInsufficiency 20 - Less than 30 ng/mLSufficiency 30 - 100 ng/mL Performed By: #### L 500.90691, L500.77454, L500.39809, L550.83492 ####[facility] LZIBJZMPDP0350 [place], [place] [address]Hz# [phone] CBCon 01-18-2017 Erythrocyte distribution width Auto Ratio (RBC) 12.5 % Normal 11-14.5 [facility] Erythrocytes (RBC) 4.31 M/CU MM Normal 3.9-5.30 [facility] Hematocrit (HCT) 41.1 % Normal 35.0-47.0 [facility] Hemoglobin mass conc (Bld) 13.4 g/dL Normal 11.5-15.5 [facility] MCHC mass conc (RBC) 32.6 g/dL Normal 32.0-36.0 [facility] MCV 95.4 fL Normal 80.0-99.0 [facility] Platelets 294 K/CU MM Normal 150-450 [facility] WBC (Leukocytes) 9.2 K/CU MM Normal 4.5-11.0 [facility] DIGITAL MAMMO SCREENINGon DIGITAL MAMMO SCREENING BILATERAL DIGITA L SCREENING MAMMOGRAM WITH CAD: 01/18/2017CLINICAL: Routine screening.Prior exams more than 10 yrs. ago.The tissue of both breasts is heterogeneously dense. Thismay lower the sensitivity of mammography.Current study was also evaluated with a Computer AidedDetection (CAD) system.No significant masses, calcifications, or other findings areseen in either breast.IMPRESSION: NEGATIVEThere is no mammographic evidence of malignancy. A 1 yearscreening mammogram is recommended.The false-negative rate of mammography is approximately 10%.Management of a palpable abnormality must be based uponclinical grounds.Dr. Inge Katz M.D.drb/yulianarad: 017 08:14:04Imaging Technologist: Josefina RAMIREZ(Trevon)(Jimbo), [facility] [place] sent: Mammography NormalBI-RADS: 1 Negative Reported By: INGE KATZ M.D. Signed By: INGE KATZ M.D. [facility] Vital Signs Date Time Vital Sign Value Performing Clinician Dati alex 10-23-2024 08:48-0400 Body height 165.[address] Janet Galicia MD Work Phone: [facility] 10-23-2024 08:48-0400 Body mass index (BMI) [Ratio] 22.4 kg/m2 Dr. Janet Galicia MD Work Phone: [facility] 10-23-2024 08:48-0400 Body weight 61.[address] Janet Galicia MD Work Phone: [facility] 10-23-2024 08:48-0400 Diastolic blood pressure 79 mm[Hg] Dr. Janet Galicia MD Work Phone: [facility] 10-23-2024 08:48-0400 Respiratory rate 18 /min Dr. Janet Galicia MD Work Phone: [facility] 10-23-2024 08:48-0400 Systolic blood pressure 135 mm[Hg] Dr. Janet Galicia MD Work Phone: [facility] 10-17-2024 15:26-0400 Body height 165.[address] Janet Galicia MD Work Phone: [facility] 10-17-2024 15:26-0400 Body mass index (BMI) [Ratio] 22.8 kg/m2 Dr. Janet Galicia MD Work Phone: 2(225)481-416032 [place] [address] 10-17-2024 15:26-0400 Body temperature 98.2 [degF] Dr. Janet Galicia MD Work Phone: 5(346)508-486915 [place] [address] 10-17-2024 15:26-0400 Body weight 62.[address] Janet Galicia MD Work Phone: 4(057)010-367315 [place] [address] 10-17-2024 15:26-0400 Diastolic blood pressure 68 mm[Hg] Dr. Janet Galicia MD Work Phone: 2(808)860-055015 [place] [address] 10-17-2024 15:26-0400 Heart rate 64 /min Dr. Janet Galicia MD Work Phone: 2(638)459-525715 [place] [address] 10-17-2024 15:26-0400 Respiratory rate 18 /min Dr. Janet Galicia MD Work Phone: 0(534)205-044415 [place] [address] 10-17-2024 15:26-0400 SaO2% (BldA) [Mass fraction] 96 % Dr. Janet Galicia MD Work Phone: 5(768)135-184215 [place] [address] 10-17-2024 15:26-0400 Systolic blood pressure 124 mm[Hg] Dr. Janet Galicia MD Work Phone: 9(398)083-205015 [place] [address] 10-14-2024 17:23-0400 Body height 165.[address] Janet Galicia MD Work Phone: 4(199)302-036415 [place] [address] 10-14-2024 17:23-0400 Body mass index (BMI) [Ratio] 23 kg/m2 Dr. Janet Galicia MD Work Phone: 5(871)209-775915 [place] [address] 10-14-2024 17:23-0400 Body temperature 97.7 [degF] Dr. Janet Galicia MD Work Phone: 3(532)061-730815 [place] [address] 10-14-2024 17:23-0400 Body weight 62.[address] Janet Galicia MD Work Phone: 2(931)082-591132 [place] [address] 10-14-2024 17:23-0400 Diastolic blood pressure 60 mm[Hg] Dr. Janet Galicia MD Work Phone: [facility] 10-14-2024 17:23-0400 Heart rate 50 /min Dr. Janet Galicia MD Work Phone: [facility] 10-14-2024 17:23-0400 Respiratory rate 16 /min Dr. Janet Galicia MD Work Phone: [facility] 10-14-2024 17:23-0400 SaO2% (BldA) [Mass fraction] 98 % Dr. Janet Galicia MD Work Phone: [facility] 10-14-2024 17:23-0400 Systolic blood pressure 102 mm[Hg] Dr. Janet Galicia MD Work Phone: [facility] Encounters Encounter Date Encounter Type Care Provider Facility Start: 11-19-2024 ambulatory Shimakristen Gonzalezr Facilit y:[facility] Start: 10-23-2024 End: 10-23-[address] Jacob Beal MD -[facility] Work Phone: Start: 10-23-2024 End: 10-23-[address] Janet Galicia MD Work Phone: -[facility] Start: 10-17-2024 End: 10-17-[address] Janet Galicia MD Work Phone: -[facility] Start: 10-17-2024 End: 10-17-2024 Patient encounter procedure Shimakristen Gonzalezr [employer]ID[employer] INSTRUCTOR-C -[facility] Start: 10-17-2024 End: 10-17-2024 Patient encounter procedure Shima Carlosr BRID[employer] INSTRUCTOR-C -[facility] Work Phone: Start: 10-17-2024 End: 10-17-[address] Janet Galicia MD Work Phone: -[facility] Start: 10-17-2024 End: 10-17-2024 ambulatory Shimakristen King Facility:[facility] Start: 10-14-2024 End: 10-14-2024 Patient encounter procedure Yas Garcia [facility] -[facility] Work Phone: Start: 10-14-2024 End: 10-14-[address] Janet Galicia MD Work Phone: -[facility] Start: 01-18-2017 Ambulatory Daniel Anaya Facility:[facility] Plan of Treatment Date Care Activity Detail Author Start: 10-17-2024 Complete blood count [facility] Start: 10-17-2024 Comprehensive metabo lic 2000 panel - Serum or Plasma [facility] Start: 10-17-2024 T4 free measurement [facility] Start: 10-17-2024 Thyroid stimulating hormone measurement [facility] Start: 10-17-2024 Triiodothyronine, free measurement [facility] Alanine aminotransfe rase [Enzymatic activity/volume] in Serum or Plasma [facility] Albumin [Mass/volume ] in Serum or Plasma [facility] Alkaline phosphatase [Enzymatic activity/volume] in Serum or Plasma [facility] Anion gap in Serum or Plasma [facility] Bilirubin, total measurement [facility] BUN/Creatinine ratio [facility] Calcium [Mass/volume ] in Serum or Plasma [facility] Carbon dioxide, tota l [Moles/volume] in Central venous blood [facility] Colonoscopy [facility] Creatinine [Mass/vol ume] in Serum or Plasma [facility] Erythrocyte mean cor puscular volume determination [facility] Glucose [Mass/volume ] in Serum or Plasma [facility] Hematocrit [Volume F raction] of Blood [facility] Hemoglobin [Mass/volume] in Blood [facility] Leukocytes [#/volume] in Blood [facility] Mean corpuscular hem oglobin concentration determination [facility] Mean corpuscular hem oglobin determination [facility] Measurement of renal function [facility] Platelets [#/volume] in Blood [facility] Potassium measurement [facility] Red blood cell count [facility] Red cell distributio n width determination [facility] Serum chloride measurement [facility] Sodium measurement [facility] Total protein measurement [facility] Urea nitrogen [Mass/ volume] in Serum or Plasma [facility] Payers Date Payer Category Payer Self-pay 2016 Unknown [id number] Unknown [id number] 2.16.8 [id number] Unknown [id number] 2.16.8 [id number] Unknown [id number] 2.16.8 [id number] Unknown [id number] 2.16.8 [id number] Unknown [id number] 2.16.8 [id number] Social History Date Type Detail Facility Start: 10-14-2024 Tobacco smoking stat us MEIS Never smoked tobacco (finding) [facility] Start: 1965 Sex Assigned At Female [facility] Start: 10-17-2024 End: 10-23-2024 Tobacco smoking status NHIS Ex-smoker (finding) [facility] Progress note 10-23-2024 Note Date & Type Note Facility 10-23-2024 Progress note [facility] Medical Services Progress note 10-23-2024 Note Date & Type Note Facility 10-23-2024 Progress note Note Date/Time October 23, 2024 9:10 am [facility] [address] [place] [address]. [address] [place] [address] OFFICE VISIT Date of Service: 10/23/24 MR#: [id number] Acct: [id number] Name: ISMAEL GARRETT Monica Rep #: [id number] : 1965 Provider: Dr. Sanjeev Beal MD Age/Sex: 59/F Location: [facility] Status: Signed Intake Vital Signs 10/17/24 15:26 10/23/24 08:48 Height 5 ft 5 in 5 ft 5 in Weight: 137 lb 135 lb BMI 22.8 22.4 BP 124/68 H 135/79 H Blood Pressure Location Lt brachial Rt brachial Position Sitting Sitting Respiration 18 18 Pulse 64 Pulse Source Monitor Temp 98.2 F Temp Source Temporal Pulse Oximetry (%) 96 Oxygen Delivery Method room air Intake Visit Reasons: SELF PAY- colonoscopy- abd pain Chief Complaint: RLQ abd pain, bloating, constipation Winding Inspector Required: No Is patient in pain?: Yes (RLQ abd) Allergies No Known Allergies Allergy (Verified 10/23/24 08:50) Medications ?Medication ?Instructions ?Recorded ?Confirmed ?Type NK 10/14/24 10/23/24 History Have you fallen in the past year?: No PFSH Medical History (Updated 10/23/24 @ 08:48 by Chapis Reyes) Constipation Bloating Abdominal pain Stenosis of ureter Stomach ulcer Abdominal migraine Surgical History (Updated 10/23/24 @ 08:48 by Chapis Reyes) H/O hand surgery Family History Father Myocardial infarction, Onset Age: 50 Suicide CVA (cerebral vascular accident), Onset Age: 50 Sister Suicide Sister Schizophrenia Manic depressive disorder Son Thyroid disorder Mother Thyroid disorder Graves disease Social History (Updated 10/23/24 @ 08:48 by Chapis Reyes) adopted: No current occupational status: employed current occupational exposures/hazards: No Smoking Status: Former smoker alcohol intake: former substance use type: marijuana what type of physical activity do you participate in: walking frequency: daily duration: 45-60 minutes/day seatbelt use: always do you feel safe at home: Yes HPI HPI HPI: The patient is a 59-year-old female who is being seen today for issues of chronic constipation as well as right lower quadrant pain. She states that thishas been an ongoing problem for her off and on for several decades however in the last few years this has become much more symptomatic and problematic. She describes pain off and on in the right lower quadrant. She describes bloating. She states that she typically has a bowel movement once every 1 to 2 weeks. When asked about what she does to stimulate bowel movements, sounds as though she drinks more fluids and tries to eat a more high-fiber diet with more fruits and vegetables etc. she has not had a colonoscopy. As far as family history, her mother has history of polyps and diverticulitis. No family history for Crohn's disease, ulcerative colitis or colon cancers. She does not notice any regular blood in her stools but does state that several years ago she had a couple episodes of painless blood per rectum. She also describes somewhat of a burning sensation throughout her lower abdomen when the stools are passing. Shepresents today for evaluation and to discuss possible colonoscopy ROS General General: Yes weight change and fatigue; No appetite, colon cancer, breast cancer or weakness HEENT HEENT: No difficulty swallowing, eye injury, eye surgery, swollen glands or hoarseness Endo Endocrine: Yes thyroid disease; No diabetes mellitus, thyroid cancer, Hair loss, heat intolerance or cold intolerance Skin Skin: No rash or changing moles Breast Breast: No left breast lump, right breast lump, nipple discharge, breast pain, abnormal mammogram, abnormal US or breast enlargement Musc Musculoskeletal: Yes back problems; No arthritis, rheumatoid arthritis, gout or joint pain Cardio Cardiovascular: No murmur, pacemaker, heart disease, atrial fibrillation, high blood pressure, heart attack, heart stent, palpitations, shortness of breath with exertion or chest pain Psych Psychiatric: Yes depression; No anxiety or hearing voices Resp Respiratory: No shortness of breath, No sleep apnea, No cough, No COPD, No asthma, No emphysema and No wheezing Gastro Gastrointestinal: Yes abdominal pain, Yes nausea or vomiting, Yes diarrhea, Yes constipation, No blood in stool, No acid reflux, No hemorrhoids, No ulcers, No gallbladder problem and No black,tarry stools Jason Hematologic: No blood thinners, No blood disorders, No bleeding, No anemia and No blood clots Neuro Neurologic: No system reviewed and no additional complaints, except as documented, No as per HPI, No abnormal gait, No abnormal hearing, No abnormal movements, No abnormal speech, No behavioral changes, No burning sensations, No confusion, No convulsions, No disequilibrium, No dizziness, No localized weakness, No frequent falls, No headache(s), No lack of coordination, No loss ofvision, No memory loss, No numbness, No other visual disturbances, No radicular pain, No restless legs, No sensory deficit, No syncope, No tingling, No tremor(s), No weakness and No other Exam Const General: cooperative, healthy appearing, comfortable and no acute distress [facility] Head: normal to inspection, normocephalic and atraumatic Eyes General: appearance normal, both eyes and all related structures Neck Neck: normal visual inspection Resp Effort & Inspection: normal respiratory effort GI Other: Abdomen is soft. Mild discomfort with palpation on the right. Her abdomen doesseem somewhat bloated Assessment and Plan Assessment and Plan (1) Colon cancer screening: Status: Acute (2) Abdominal pain: Status: Acute (3) Bloating: Status: Acute (4) Constipation: Status: Acute Plan The patient is a 59-year-old female with history of chronic constipation and right lower quadrant pain. In order to better evaluate her colon, I have recommended colonoscopy as she has never had previous colonoscopy. We discussedthe details of the planned procedure including risks benefits and alternatives. She wishes to proceed. This will be scheduled in a timely manner. In the meantime, I have recommended that we try to get her on a bowel regimen. I suggested at least 1 capful of MiraLAX daily. She can certainly go up to 2 or more capfuls in hopes that we can for her bowel prep, I am recommending a 2-day bowel prep with GoLytely. Coding Level of Care Code Off vis,new,level 3 Diagnoses Colon cancer screening Z12.11 Abdominal pain R10.9 Bloating R14.0 Constipation K59.00 Clinical Quality Measures Falls Risk Screening/Assistive Devices Have you fallen in the past year?: No 10/23/24 0910 <Electronically signed by Jacob kong MD> Date _ Jacob Beal MD Cosign Signature: Date (if applicable) CC: CARMEN King ~ [facility] [employer] Work Phone: Evaluation note 10-14-2024 Note Date & Type Note Facility 10-14-2024 Evaluation note Diagnosis Onset Date Resolution Abdominal discomfort acute October 14, 2024 5:23pm Pelvic pain acute October 14 5:23pm Abdominal discomfort acute October 17, 2024 2:59pm Alejandra's thyroiditis acute J [email or web address] 2:59pm Hearing problem acute October 2:59pm Pelvic pain acute October 17 2:59pm Recurrent UTI acute October 17, 2024 2:59pm Thyroid disease acute October 2:59pm Chronic headaches chronic October 172024 2:59pm [facility] Work Phone: Evaluation note 10-14-2024 Note Date & Type Note Facility 10-14-2024 Evaluation note Diagnosis Onset Date Resolution Abdominal discomfort acute October 14, 2024 5:23pm Pelvic pain acute October 14 5:23pm Abdominal discomfort acute October 17, 2024 2:59pm Colon cancer screening acute Ju ly 2024 2:59pm Alejandra's thyroiditis acute J [email or web address] 2:59pm Pelvic pain acute October 17 2:59pm Recurrent UTI acute October 17, 2024 2:59pm Thyroid disease acute October 2:59pm Chronic headaches chronic October 172024 2:59pm Abdominal pain acute October 23, 2024 8:31am Bloating acute October 23 8:31am Colon cancer screening acute Ju ly 2024 8:31am Constipation acute October 23, 025 8:31am [facility] Work Phone: Evaluation note Note Date & Type Note Facility Evaluation note No assessment information availa ble [facility] Work Phone: Reason for referral (narrative) Note Date & Type Note Facility Reason for referral (narrative) No reason for referral information available [facility] Work Phone: Summary Purpose Family History No Family History Records Found Relationship Condition Age at Onset Recorded Date/T damaris father Myocardial infarction 50 Suicide Unknown Cerebrovascular accident (CVA) 50 sister Suicide Unknown sister Schizophrenia Unknown Bipolar disorder Unknown son Disorder of thyroid Unknown mother Disorder of thyroid Unknown Graves' disease Unknown Advance Directives No Advanced Directives Records FoundNo Advanced Directives Records Found Chief Complaint and Reason for Visit Chief Complaint Admit Date CONCERN FOR UTI October 14, 2024 5:23p m Chief Complaint Admit Date CONCERN FOR UTI October 14, 2024 5:23p m ACUTE LOWER ABD PAIN-EST IN Jan 2:59pm Reason for Visit Admit Date Abdominal discomfort October 14, 2024 5:23 pm Pelvic pain October 14, 2024 5:23p m Abdominal discomfort October 17, 2024 2:5 9pm Alejandra's thyroiditis October 17, 2024 2:59pm Hearing problem October 17, 2024 2:59 pm Pelvic pain October 17, 2024 2:59 pm Recurrent UTI October 17, 2024 2:59 pm Thyroid disease October 17, 2024 2:59 pm Chronic headaches October 17, 2024 2:59 pm Chief Complaint Admit Date CONCERN FOR UTI October 14, 2024 5:23p m ACUTE LOWER ABD PAIN-EST IN Jan 2:59pm SELF PAY- colonoscopy- abd pain October 8:31am Reason for Visit Admit Date Abdominal discomfort October 14, 2024 5:23 pm Pelvic pain October 14, 2024 5:23p m Abdominal discomfort October 17, 2024 2:5 9pm Colon cancer screening October 17, 2024 2 :59pm Alejandra's thyroiditis October 17, 2024 2:59pm Pelvic pain October 17, 2024 2:59 pm Recurrent UTI October 17, 2024 2:59 pm Thyroid disease October 17, 2024 2:59 pm Chronic headaches October 17, 2024 2:59 pm Abdominal pain October 23, 2024 8:31 am Bloating October 23, 2024 8:31 am Colon cancer screening October 23, 2024 8 :31am Constipation October 23, 2024 8:31 am Additional Source Comments INFORMATION SOURCE (unrecogn ized section and content) DATE CREATED AUTHOR 10/03/2017 [facility] [place] DATE CREATED AUTHOR AUTHOR'S ORGANIZ ATION [facility] Teams (unrecognized sec tion and content) Team Status: Active Member Role/Relationship Status Dates Dr. Janet Galicia MD Family Provider Active Dr. Janet Galicia MD Primary Care Provider Active Team Status: Inactive Member Role/Relationship Status Dates Dr. Janet Galicia MD Primary Care Provider Active Start: October 14, 2024 End: October 14, 2024 Dr. Janet Galicia MD Referring Provider Active St art: October 14, 2024 End: October 14, 2024 Yas Garcia PA, PA Attending Provider Active Start: October 14, 2024 End: October 14, 2024 Team Status: Active Member Role/Relationship Status Dates Dr. Janet Galicia MD Family Provider Active Shima Ungerer , BRIDGE INSTRUCTOR-C Primary Care Provider Active Team Status: Inactive Member Role/Relationship Status Dates Dr. Janet Galicia MD Primary Care Provider Active Start: October 17, 2024 End: October 17, 2024 Dr. Janet Galicia MD Referring Provider Active St art: October 17, 2024 End: October 17, 2024 Shima Ungerer , BRIDGE INSTRUCTOR-C Attending Provider Active Start: October 17, 2024 End: October 17, 2024 Team Status: Active Member Role/Relationship Status Dates Shima Ungerer , BRIDGE INSTRUCTOR-C Primary Care Provider Active Start: October 17, 2024 Shima Ungerer , BRIDGE INSTRUCTOR-C Attending Provider Active Start: October 17, 2024 Team Status: Active Member Role/Relationship Status Dates Shima Ungerer , BRIDGE INSTRUCTOR-C Primary Care Provider Active Team Status: Inactive Member Role/Relationship Status Dates Shima Ungerer , BRIDGE INSTRUCTOR-C Primary Care Provider Active Start: October 23, 2024 End: October 23, 2024 Shima Ungerer , BRIDGE INSTRUCTOR-C Referring Provider Active Start: October 23, 2024 End: October 23, 2024 Dr. Jacob Beal MD Attending Provider Active Start: October 23, 2024 End: October 23, 2024 Team Status: Inactive Member Role/Relationship Status Dates Shima Ungerer , BRIDGE INSTRUCTOR-C Primary Care Provider Active Start: October 17, 2024 End: October 17, 2024 Shima Ungerer , BRIDGE INSTRUCTOR-C Attending Provider Active Start: October 17, 2024 End: October 17, 2024 Goals (unrecognized section and content) Goals may be documented in a n alternate sectionGoals may be documented in an alternate sectionGoals may be documented in an alternate sectionGoals may be documented in an alternate section FOR RECORDS PERTAINING TO PATIENTS WHO ARE OR HAVE BEEN ENROLLED IN A CHEMICAL DEPENDENCY/SUBSTANCEABUSE PROGRAM, SOME INFORMATION MAY BE OMITTED. This clinical summary was aggregated from multiple sources. Caution should be exercised in using it in the provision of clinical care. This summary normalizes information from multiple sources, and as a consequence, information in this document may materially change the coding, format and clinical context of patient data. In addition, data may be omitted in some cases. CLINICAL DECISIONS SHOULD BE BASED ON THE PRIMARY CLINICAL RECORDS. [facility]. provides no warranty or guarantee of the accuracy or completeness of information in this document.
[2024-11-19] MEDS: Lactated Ringers 1,000 ML 15 ML IV (07:48)
--- NOTE | 2024-11-19 08:08 | PRE.ANES_ITS ---
ASA Classification* ASA Classification ASA Classification: 2 Assessment & Plan Anesthesia* Anesthesia Assessment Anesthesia Assessment: Discussed sedation and/or anesthesia options, risks, benefits, and alternatives with patient/parents/legal guardian/POA. Questions invited. The patient/parents/legal guardian/POA seems to understand and agrees to proceed with anesthesia plan. Reviewed the physical assessment, medical history, allergy history and patient home medications list prior to surgery/procedure/anesthetic and documented any changes. Performed airway and anesthesia risk assessments. Anesthesia Type Anesthesia Type: MAC History Source History Obtained from:: Patient and Chart Anesthesia Focused Assessment* Temperature: 97.7 F Pulse Rate: 55 Blood Pressure: 133/72 Respiratory Rate: 16 Pulse Ox: 100 Oxygen Delivery Method: Room Air Airway Assessment Mouth opens: >3 cm Mallampati Score: II Teeth Condition: Implants (Patient has several implants. They are all tight.) Neck Range of motion (ROM): Full ROM Labs Anesthesia Preop lab: CBC WBC 6.6 K/mm3 (4.4-11.0) 10/17/24 16:17 10/17/24 RBC 4.71 M/mm3 (4.2-5.4) 10/17/24 16:17 10/17/24 Hgb 14.2 g/dL (12.0-15.0) 10/17/24 16:17 10/17/24 Hct 43.5 % (37-47) 10/17/24 16:17 10/17/24 Plt Count 295 K/mm3 (150-450) 10/17/24 16:17 10/17/24 CHEMISTRY Potassium 4.2 mmol/L (3.3-5.1) 10/17/24 16:17 10/17/24 Sodium 143 mmol/L (133-145) 10/17/24 16:17 10/17/24 BUN 13 mg/dL (4-19) 10/17/24 16:17 10/17/24 Creatinine 0.87 mg/dL (0.70-1.20) 10/17/24 16:17 10/17/24 Glucose 95 mg/dL (70-99) 10/17/24 16:17 10/17/24 TSH 4.120 uIU/mL (0.300-4.200) 10/17/24 16:17 10/08 COAG Pre-Assessment Diagnosis/Proposed Procedure Planned Operative Procedure(s): Colonoscopy Anesthesia History Anesthesia History - front desk manager: Anesthesia History - front desk manager Hx Hospitalization No 11/14/24 15:32 Any Problems With Anesthesia No 11/14/24 15:32 Cholinesterase deficiency No 11/14/24 15:32 You/Your Family Experience No 11/14/24 15:32 fever (hyperthermia) with Relationship Recent Exposure to Contagious No 11/19/24 07:40 Disease Does patient have nerve No 11/14/24 15:32 stimulator Patient instructed to have device shut off --Does patient have Pacemaker No 11/19/24 07:40 or ICD? When Was Last Pacemaker Check QUESTION #4 FULL TEXT: You/Your Family Experience fever (hyperthermia) with Anesthesia Last Oral Intake Last Oral intake: Last Oral Intake NPO since 19:30 11/19/24 07:40 Meds taken in AM with sips of No 11/19/24 07:40 water? Meds patient instructed to take am of surgery PONV PONV - front desk manager: PONV - front desk manager Female Yes 11/14/24 15:32 HX of Motion Sickness Yes 11/14/24 15:32 HX of N/V After Surgery No 11/14/24 15:32 Non-Smoker Yes 11/14/24 15:32 Duration of Surgery greater No 11/14/24 15:32 than 60 minutes Number of Risk Factors 3 11/14/24 15:32 PONV Score Moderate Risk 11/14/24 15:32 Height & Weight Height & Weight: Anesthesia: Height & Weight Height 5 ft 4.96 in 11/19/24 07:40 Weight: 59 kg 11/19/24 07:40 Body Mass Index (BMI) 21.7 11/19/24 07:40 Respiratory Assessment Respiratory Assessment - front desk manager: Respiratory Tract Infection Hx - front desk manager Hx Respiratory Tract Infection No 11/14/24 15:32 STOP Sleep Apnea STOP Sleep Apnea - front desk manager: STOP Sleep Apnea - front desk manager Hx Hypertension No 11/14/24 15:32 Hx Sleep Apnea No 11/14/24 15:32 CPAP BIPAP Do you snore loudly (louder No 11/14/24 15:32 than talking or can be heard Do you often feel tired/ No 11/14/24 15:32 fatigued/ sleepy during daytime? Has anyone observed you stop No 11/14/24 15:32 breathing during sleep? STOP Results Negative 11/14/24 15:32 QUESTION #5 FULL TEXT : Do you snore loudly (louder than talking or can be heard through closed doors)? Tobacco Use History Tobacco Use History - front desk manager: Tobacco Use History - front desk manager Tobacco Use Smoking Status Former smoker 11/14/24 15:32 Hx Tobacco Use No 11/14/24 15:32 Years Smoking Packs Smoked per Day Smoking Cessation Date was No - quit smoking greater 11/14/24 15:32 within the last 15 years than 15 years ago Hx Smoking Cessation Date Hx Smoking Cessation No 11/14/24 15:32 Counseling Hematologic Medial History Hematologic Hx - front desk manager: Hematologic Medical Hx - application packager Hx of Blood Transfusion No 11/14/24 15:32 Hx of Transfusion in last 3 No 11/14/24 15:32 Months Date of Last Transfusion (if within last 3 months) Ever experience any problems No 11/14/24 15:32 with transfusion(s)? Specify any problems Hx of Preganancy in last 3 No 11/14/24 15:32 Months Nurse Filling Out Transfusion JZOLLINGE 11/14/24 15:32 & Questions: Date: 11/14/24 11/14/24 15:32 Time: 15:33 11/14/24 15:32 Patient unable to answer at this time (ie. confused, unrespo /Reproduction History /Reproductive History - front desk manager: /Reproductive Hx- front desk manager Hx Now No 11/14/24 15:32 Gestational Age (in weeks): EDC: Hx Hx Para Hx Section SAB No 11/14/24 15:32 Active Medications Active Medications: Current Medications Generic Name Dose Route Start Last Admin Trade Name Freq PRN Reason Stop Dose Admin Lactated Ringer's 1,000 mls @ 15 mls/hr 11/19/24 07:30 11/19/24 07:48 IV 15 mls/hr .Q48H JOSEPH Administration PFSH Medical History Marijuana use Former smoker Constipation Bloating Abdominal pain Stenosis of ureter Stomach ulcer Abdominal migraine Home Medications ?Medication ?Instructions ?Recorded ?Last Taken ?Type peg 3350-electrolytes 236 240 ml PO Q10M #4,000 mL Unknown Rx gram-22.74 gram-6.74 gram-5.86 gram solution (Golytely) Allergy/AdvReac Type Severity Reaction Status Date / Time No Known Allergies Allergy Verified 11/14/24 15:29 Family History Father Myocardial infarction, Onset Age: 50 Suicide CVA (cerebral vascular accident), Onset Age: 50 Sister Suicide Sister Schizophrenia Manic depressive disorder Son Thyroid disorder Mother Thyroid disorder Graves disease Surgical History H/O hand surgery Social History adopted: No current occupational status: employed current occupational exposures/hazards: No Smoking Status: Former smoker alcohol intake: former substance use type: marijuana what type of physical activity do you participate in: walking frequency: daily duration: 45-60 minutes/day seatbelt use: always do you feel safe at home: Yes Review of Systems (Anesthesia) ROS Narrative System reviewed and no additional complaints, except as documented.
--- NOTE | 2024-11-19 08:15 | COLBX_PTH ---
PATIENT: ISMAEL GARRETT LOC: EN U#:[id number] AGE/SX: 59/F ROOM: RE11/19/[address]: Dr. Jacob Beal MD : 1965 BED: DIS: 11/19/2024 SPEC #: [id number] RECD: 11/19/24 10:19 STATUS: BETHANY LEWIS #: [id number] THANG: 11/19/24 08:[address]: Jacob Beal DEPT: SURGICAL PATHOLOGY RECD BY: Vickey Lawson ENTERED: 11/19/24 14:53 SP TYPE: COLON BX OTHR DR: Shima King, THAI MASSEUR-C Tissues: A - Cecum, NOS B - Descending colon Procedures: Surgery Specimen Level IV HEADER OPERATION: Colonoscopy, polypectomy PRE-OP DIAGNOSIS: Colon cancer screening TISSUE SUBMITTED: A- Cecum polyp, B- Descending polyp biopsy MICROSCOPIC DIAGNOSIS A. Cecum, polyp, biopsy: - Tubular adenoma. B. Descending colon, polyp, biopsy: - Tubular adenoma. MICROSCOPIC DESCRIPTION Slides are reviewed. GROSS DESCRIPTION A. Received in fixative is one container labeled with the patient's name and designated Cecum polyp. The specimen consists of multiple irregular fragments of light duffy soft tissue that in aggregate measure 1 x 0.5 x 0.1 cm. The specimen is totally submitted in one cassette. B. Received in fixative is one container labeled with the patient's name and designated Descending polyp biopsy. The specimen consists of five irregular fragments of light duffy soft tissue that measure 0.2 to 0.4 cm. The specimen is totally submitted in one cassette. CO 11/19/2024 CPT:75249y4
--- NOTE | 2024-11-19 08:17 | PCM.HP.STD ---
HPI - General General Date of Admission: 11/19/24 Date of Service: 11/19/24 Chief Complaint: colonoscopy HPI Narrative The patient is a 59-year-old female who is being seen today for issues of chronic constipation as well as right lower quadrant pain. She states that this has been an ongoing problem for her off and on for several decades however in the last few years this has become much more symptomatic and problematic. She describes pain off and on in the right lower quadrant. She describes bloating. She states that she typically has a bowel movement once every 1 to 2 weeks. When asked about what she does to stimulate bowel movements, sounds as though she drinks more fluids and tries to eat a more high-fiber diet with more fruits and vegetables etc. she has not had a colonoscopy. As far as family history, her mother has history of polyps and diverticulitis. No family history for Crohn's disease, ulcerative colitis or colon cancers. She does not notice any regular blood in her stools but does state that several years ago she had a couple episodes of painless blood per rectum. She also describes somewhat of a burning sensation throughout her lower abdomen when the stools are passing. She presents today for colonoscopy FOR[facility] Medical History Marijuana use Former smoker Constipation Bloating Abdominal pain Stenosis of ureter Stomach ulcer Abdominal migraine Home Medications ?Medication ?Instructions ?Recorded ?Last Taken ?Type peg 3350-electrolytes 236 240 ml PO Q10M #4,000 mL 10/23/24 Unknown Rx gram-22.74 gram-6.74 gram-5.86 gram solution (Golytely) Allergy/AdvReac Type Severity Reaction Status Date / Time No Known Allergies Allergy Verified 11/14/24 15:29 Family History Father Myocardial infarction, Onset Age: 50 Suicide CVA (cerebral vascular accident), Onset Age: 50 Sister Suicide Sister Schizophrenia Manic depressive disorder Son Thyroid disorder Mother Thyroid disorder Graves disease Surgical History H/O hand surgery Social History adopted: No current occupational status: employed current occupational exposures/hazards: No Smoking Status: Former smoker alcohol intake: former substance use type: marijuana what type of physical activity do you participate in: walking frequency: daily duration: 45-60 minutes/day seatbelt use: always do you feel safe at home: Yes Vital Signs Vital Signs Vital Signs: 11/19/24 07:40 11/19/24 07:40 11/19/24 08:13 Temperature 97.7 F L 97.7 F L Temperature Source Temporal Pulse Rate 55 L 55 L Respiratory Rate 16 16 Respiratory Pattern Normal Blood Pressure 133/72 H 133/72 H Blood Pressure Mean 92 Blood Pressure Source Monitor Blood Pressure Position Sitting Blood Pressure Location Right Arm Pulse Ox 100 100 Oxygen Delivery Method Room Air Room Air Weight Weight: 130 lb 1.164 oz Body Mass Index (BMI) 21.7 Physical Exam Const alert, oriented x3 and no apparent distress Assessment & Plan Assessment/Plan (1) Colon cancer screening: PLAN: Plan colonoscopy today
--- NOTE | 2024-11-19 09:09 | OP.COLON_ITS ---
Patient Name: Cristina Gonzales Procedure Date: 11/19/2024 8:19 AM Date of : 1965 Age: 59 Procedure: Colonoscopy Indications: Generalized abdominal pain Providers: Jacob Beal MD Referring MD: Geoff Guzman Medicines: Monitored Anesthesia Care Patient Profile: Refer to note in patient chart for documentation of history and physical. Last Colonoscopy: more than 10 years ago. Complications: No immediate complications. Estimated blood loss: Minimal. Procedure: Pre-Anesthesia Assessment: - Prior to the procedure, a History and Physical was performed, and patient medications and allergies were reviewed. The patient's tolerance of previous anesthesia was also reviewed. The risks and benefits of the procedure and the sedation options and risks were discussed with the patient. All questions were answered, and informed consent was obtained. Prior Anticoagulants: The patient has taken no anticoagulant or antiplatelet agents. ASA Grade Assessment: II - A patient with mild systemic disease. After reviewing the risks and benefits, the patient was deemed in satisfactory condition to undergo the procedure. After I obtained informed consent, the scope was passed under direct vision. Throughout the procedure, the patient's blood pressure, pulse, and oxygen saturations were monitored continuously. The adult colonoscope was introduced through the anus and advanced to the cecum, identified by appendiceal orifice and ileocecal valve. The colonoscopy was performed without difficulty. The patient tolerated the procedure well. The quality of the bowel preparation was adequate. The ileocecal valve, appendiceal orifice, and rectum were photographed. Moderate Sedation: See the other procedure note for documentation of moderate sedation with intraservice time. Scope In: 8:33:51 AM Scope Withdrawal Time 0 hours 18 minutes 12 seconds Scope Out: 9:01:19 AM Total Procedure Duration Time 0 hours 27 minutes 28 seconds Findings: The perianal and digital rectal examinations were normal. A 5 mm polyp was found in the cecum. The polyp was semi-sessile. The polyp was removed with a hot snare. Resection and retrieval were complete. Verification of patient identification for the specimen was done by the nurse using the patient's name, date and medical record number. Estimated blood loss was minimal. A 3 mm polyp was found in the descending colon. The polyp was semi-sessile. The polyp was removed with a cold biopsy forceps. Resection and retrieval were complete. Verification of patient identification for the specimen was done by the nurse using the patient's name, date and medical record number. Estimated blood loss was minimal. The exam was otherwise without abnormality on direct and retroflexion views. Impression: - One 5 mm polyp in the cecum, removed with a hot snare. Resected and retrieved. - One 3 mm polyp in the descending colon, removed with a cold biopsy forceps. Resected and retrieved. - The examination was otherwise normal on direct and retroflexion views. Recommendation: - Discharge patient to home (ambulatory). - High fiber diet indefinitely. - Await pathology results. - Repeat colonoscopy in 5 years for surveillance. - Return to my office PRN. - Continue present medications. Procedure Code(s): --- Professional --- 83506, Colonoscopy, flexible; with removal of tumor(s), polyp(s), or other lesion(s) by snare technique 21305, 59, Colonoscopy, flexible; with biopsy, single or multiple Diagnosis Code(s): --- Professional --- D12.0, Benign neoplasm of cecum R10.84, Generalized abdominal pain D12.4, Benign neoplasm of descending colon CPT copyright 2021 [employer]. All rights reserved. The codes documented in this report are preliminary and upon airplane patroller review may be revised to meet current compliance requirements. Jacob Beal MD 11/19/2024 9:08:34 AM This report has been signed electronically. Number of Addenda: 0 Note Initiated On: 11/19/2024 8:19 AM
--- NOTE | 2024-11-19 09:09 | OP.PROVAT_ITS ---
11/19/2024 Geoff Guzman Re : Colonoscopy procedure for Cristina Gonzales Dear Np. King This procedure was performed on Tuesday, November 19, 2024. My impressions and recommendations are as follows: Impressions : - One 5 mm polyp in the cecum, removed with a hot snare. Resected and retrieved. - One 3 mm polyp in the descending colon, removed with a cold biopsy forceps. Resected and retrieved. - The examination was otherwise normal on direct and retroflexion views. Recommendations : - Discharge patient to home (ambulatory). - High fiber diet indefinitely. - Await pathology results. - Repeat colonoscopy in 5 years for surveillance. - Return to my office PRN. - Continue present medications. My findings are described in the full procedure note, which is enclosed. If I can be of further assistance, please feel free to contact me at . Sincerely, Jacob Beal MD 11/19/2024 9:08:34 AM This report has been signed electronically.
--- NOTE | 2024-11-19 09:12 | PCM.POST.ANE ---
Anesthesia: Postop Eval I Current Vital Signs Temperature: 97.3 F Pulse Rate: 57 Blood Pressure: 102/52 Respiratory Rate: 16 Pulse Ox: 100 Oxygen Delivery Method: Room Air Assessment Airway patent: Yes Spontaneous unlabored respirations: Yes Mental status: Asleep nausea: No Vomiting: No Anesthesia Complication: No Fluid Hydration Crystalloid volume administer (ml): 800 Total IV fluid infused: 800 Progress Note Anesthesia document: Postop Eval 1 completed: Yes
== END 2024-11-19 10:10 | disposition home or self-care (01) ==
LOC: EN 07:24 → AC 07:24
PROVIDERS: PCP Nurse Practitioner Family; Referring Provider Nurse Practitioner Family; Visit Provider Surgery
PROC: 0DJD8ZZ Inspection of Lower Intestinal Tract, Via Natural or Artificial Opening Endoscopic (ICD-10-PCS; CPT 45378; principal; 2024-11-19 08:10)
DX: Z12.11 Encounter for screening for malignant neoplasm of colon (principal); D12.0 Benign neoplasm of cecum; D12.4 Benign neoplasm of descending colon; Z87.891 Personal history of nicotine dependence; K59.09 Other constipation
CPT/HCPCS: 45380; 45385; 88305; J2405